=== PATIENT | female | born 1935 | race Hispanic/Latino ===

== ENCOUNTER 2017-06-21 14:46 | Emergency (ER) | payer MEDICARE ==
[2017-06-21 16:51] LABS: BASOPHILS % (AUTO) 0.4 % (0.0-5.0); EOSINOPHILS % (AUTO) 1.3 % (0.0-8.0); HEMATOCRIT 33.5 % (36-48); LYMPHOCYTES % (AUTO) 16.4 % (21.0-51.0); MEAN CORPUSCULAR HEMOGLOBIN 32.7 pg (27.0-33.0); MEAN CORPUSCULAR HGB CONC 34.6 g/dL (32.0-36.0); MEAN CORPUSCULAR VOLUME 94.6 fL (79-99); MONOCYTES % (AUTO) 10.5 % (3.0-13.0); NEUTROPHILS % (AUTO) 71.4 % (40.0-77.0); PLATELET COUNT (AUTO) 290 K/uL (130-400); RED BLOOD CELL COUNT(AUTO) 3.54 MIL/uL (4.00-5.50); RED CELL DISTRIBUTION WIDTH 12.7 % (11.0-15.5); WHITE BLOOD COUNT (AUTO) 9.3 K/uL (4.8-10.8)
[2017-06-21] MEDS ORDERED: PROCHLORPERAZINE EDISYLATE 10 MG/2 ML VIAL ONE (16:51)
[2017-06-21] MEDS ORDERED: DIAZEPAM 2 MG TAB ONE (16:52)
[2017-06-21] MEDS ORDERED: SODIUM CHLORIDE 0.9% 500ML 500 ML IV ONE (16:52)
[2017-06-21 17:05] LABS: POTASSIUM 4.5 mmol/L (3.5-5.1)
== END 2017-06-21 18:36 | disposition home or self-care (01) ==
LOC: EDH 14:46
DX: R51 Headache (principal); E86.0 Dehydration; E78.5 Hyperlipidemia, unspecified; I10 Essential (primary) hypertension; K21.9 Gastro-esophageal reflux disease without esophagitis; Z88.4 Allergy status to anesthetic agent
CPT/HCPCS: 36415; 70450; 71045; 80048; 84484; 85025; 93005; 96361; 96374; 99285; J0780; J7040

== ENCOUNTER 2017-07-21 07:58 | Inpatient (IN) | payer MEDICARE ==
[~2017-07-21] VITALS: Ht 138.8 cm; Wt 65.8 kg
[2017-07-21 08:21] LABS: BASOPHILS % (AUTO) 0.5 % (0.0-5.0); EOSINOPHILS % (AUTO) 0.6 % (0.0-8.0); HEMATOCRIT 32.5 % (36-48); LYMPHOCYTES % (AUTO) 20.7 % (21.0-51.0); MEAN CORPUSCULAR HEMOGLOBIN 32.6 pg (27.0-33.0); MEAN CORPUSCULAR HGB CONC 35.1 g/dL (32.0-36.0); MEAN CORPUSCULAR VOLUME 92.7 fL (79-99); MONOCYTES % (AUTO) 9.6 % (3.0-13.0); NEUTROPHILS % (AUTO) 68.6 % (40.0-77.0); PLATELET COUNT (AUTO) 341 K/uL (130-400); RED CELL DISTRIBUTION WIDTH 12.4 % (11.0-15.5); WHITE BLOOD COUNT (AUTO) 8.3 K/uL (4.8-10.8)
[2017-07-21 08:32] LABS: APPEARANCE,URINE Clear (CLEAR); BILIRUBIN,URINE Negative (NEGATIVE); COLOR,URINE Yellow (YELLOW); GLUCOSE, URINE (UA) Negative (NEGATIVE); KETONES,URINE Negative (NEGATIVE); LEUKOCYTE ESTERASE ,URINE Negative (NEGATIVE); NITRATE,URINE Negative (NEGATIVE); OCCULT BLOOD,URINE Negative (NEGATIVE); PROTEIN,URINE Negative (NEGATIVE); UROBILINOGEN,URINE 0.2 mg/dL (0.2-1.0)
[2017-07-21 08:38] LABS: INR 0.98 (0.85-1.15); PARTIAL THROMBOPLASTIN TIME 27.1 SEC (26.3-35.5); PROTHROMBIN TIME 10.3 SEC (9.6-11.6)
[2017-07-21 08:54] LABS: ALBUMIN 3.5 g/dL (3.5-5.0); BILIRUBIN,TOTAL 0.3 mg/dL (0.2-1.0); CREATINE KINASE MB 1.8 ng/mL (0.5-3.6); CREATININE 0.8 mg/dL (0.5-1.5); POTASSIUM 4.6 mmol/L (3.5-5.1); TOTAL PROTEIN, SERUM 7.1 g/dL (6.0-8.3)
[2017-07-21] MEDS ORDERED: SODIUM CHLORIDE 0.9% 1000ML 1,000 ML IV ONE (09:20)
[2017-07-21] MEDS ORDERED: GUAIFENESIN-DM 200/20 MG 10 ML PO PRN (09:45)
[2017-07-21] MEDS ORDERED: GLUCAGON 1MG KIT 1 MG ML IM PRN (09:45)
[2017-07-21] MEDS ORDERED: MORPHINE SULFATE 2 MG/ML 1ML SYG IV PRN (09:45)
[2017-07-21] MEDS ORDERED: ZOLPIDEM TARTRATE 5 MG TAB PO PRN (09:45)
[2017-07-21] MEDS ORDERED: ONDANSETRON HCL 4 MG/2 ML VIAL IV PRN (09:45)
[2017-07-21] MEDS ORDERED: ACETAMINOPHEN 325 MG TAB PO PRN (09:45)
[2017-07-21] MEDS ORDERED: LACTULOSE 20 GM/30 ML UDCUP PO PRN (09:45)
[2017-07-21] MEDS ORDERED: DEXTROSE 50%-WATER 50 ML DISP.SYRIN IV PRN (09:45)
[2017-07-21] MEDS ORDERED: HYDRALAZINE HCL 20 MG/ML VIAL IV PRN (09:45)
[2017-07-21] MEDS: INSULIN HUMULIN R 100 UNIT/ML 3ML SQ SCH ×3 (11:30→21:25)
[2017-07-21 15:15] VITALS: BP 206/94
[2017-07-21 16:00] VITALS: BP 174/73
[2017-07-21] MEDS ORDERED: METF500T6 PO (16:16)
[2017-07-21] MEDS ORDERED: ATOR10TA69 PO (16:16)
[2017-07-21] MEDS ORDERED: METO-409 PO (16:16)
[2017-07-21] MEDS ORDERED: FERR-82 PO (16:16)
[2017-07-21] MEDS ORDERED: NITR100C9 PO (16:16)
[2017-07-21] MEDS ORDERED: CRAN500C3 PO (16:16)
[2017-07-21] MEDS ORDERED: SITA100T12 PO (16:16)
[2017-07-21] MEDS ORDERED: ASPI-555 PO (16:16)
[2017-07-21] MEDS ORDERED: LOSA25TA21 PO (16:16)
[2017-07-21] MEDS ORDERED: GLIM4TAB3 PO (16:16)
[2017-07-21] MEDS: SODIUM CHLORIDE 0.9% 1000ML 1,000 ML IV SCH (17:49)
[2017-07-21 19:00] VITALS: BP 138/57
[2017-07-21] MEDS: FAMOTIDINE 20MG TAB 20 MG TAB PO SCH (21:25)
[2017-07-21] MEDS ORDERED: METOPROLOL TARTRATE 1 MG/ML 5ML VIAL IV ONE (22:00)
[2017-07-21 23:00] VITALS: BP 123/57
[2017-07-22 03:00] VITALS: BP 142/75
[2017-07-22 04:21] LABS: BASOPHILS % (AUTO) 0.3 % (0.0-5.0); HEMATOCRIT 28.8 % (36-48); MEAN CORPUSCULAR HEMOGLOBIN 32.6 pg (27.0-33.0); MEAN CORPUSCULAR VOLUME 93.1 fL (79-99); MONOCYTES % (AUTO) 9.5 % (3.0-13.0); NEUTROPHILS % (AUTO) 79.2 % (40.0-77.0); PLATELET COUNT (AUTO) 299 K/uL (130-400); WHITE BLOOD COUNT (AUTO) 12.2 K/uL (4.8-10.8)
[2017-07-22 04:33] LABS: BILIRUBIN,TOTAL 0.4 mg/dL (0.2-1.0); CREATININE 0.8 mg/dL (0.5-1.5); POTASSIUM 3.6 mmol/L (3.5-5.1); TOTAL PROTEIN, SERUM 6.2 g/dL (6.0-8.3)
[2017-07-22 04:42] LABS: B-TYPE NATRIURETIC PEPTIDE 202 pg/mL (0-100)
[2017-07-22] MEDS: SODIUM CHLORIDE 0.9% 1000ML 1,000 ML IV SCH ×2 (05:22→17:34)
[2017-07-22] MEDS: INSULIN HUMULIN R 100 UNIT/ML 3ML SQ SCH ×4 (05:49→21:03)
[2017-07-22 09:10] VITALS: BP 141/57
[2017-07-22] MEDS: FAMOTIDINE 20MG TAB 20 MG TAB PO SCH (10:34)
[2017-07-22 12:00] VITALS: BP 122/50
[2017-07-22] MEDS: METFORMIN HCL 500 MG TABLET PO SCH (17:31)
[2017-07-22] MEDS: GLIMEPIRIDE 2 MG TABLET PO SCH (17:31)
[2017-07-22 19:00] VITALS: BP 140/82
[2017-07-22] MEDS ORDERED: ATORVASTATIN CALCIUM 10 MG TABLET PO SCH (21:00)
[2017-07-22] MEDS ORDERED: LOSARTAN 50 MG TABLET PO SCH (21:00)
[2017-07-22] MEDS: METOPROLOL TARTRATE 50 MG TAB PO SCH (21:07)
[2017-07-22 23:00] VITALS: BP 149/60
[2017-07-23] MEDS: SODIUM CHLORIDE 0.9% 1000ML 1,000 ML IV SCH (00:21)
[2017-07-23 03:00] VITALS: BP 171/76
[2017-07-23 04:03] LABS: CREATININE 0.8 mg/dL (0.5-1.5); POTASSIUM 3.4 mmol/L (3.5-5.1); THYROID STIMULATING HORMONE 2.85 uIU/mL (0.36-3.74)
[2017-07-23] MEDS: INSULIN HUMULIN R 100 UNIT/ML 3ML SQ SCH ×2 (06:42→12:49)
[2017-07-23 08:00] VITALS: BP 153/66
[2017-07-23] MEDS ORDERED: FERROUS SULFATE 325 MG TABLET.DR PO SCH (08:00)
[2017-07-23] MEDS ORDERED: LINAGLIPTIN 5 MG TABLET PO SCH (08:00)
[2017-07-23] MEDS ORDERED: ASPIRIN 81 MG EC TAB PO SCH (09:00)
[2017-07-23] MEDS ORDERED: CRANBERRY EXTRACT 500 MG PO SCH (09:00)
[2017-07-23] MEDS ORDERED: NITROFURANTOIN MONOHYD/M-CRYST 100 MG CAPSULE PO SCH (09:00)
[2017-07-23] MEDS: FAMOTIDINE 20MG TAB 20 MG TAB PO SCH (09:31)
[2017-07-23] MEDS: METOPROLOL TARTRATE 50 MG TAB PO SCH (09:32)
[2017-07-23] MEDS: GLIMEPIRIDE 2 MG TABLET PO SCH (09:32)
[2017-07-23] MEDS: METFORMIN HCL 500 MG TABLET PO SCH (09:32)
[2017-07-23 12:00] VITALS: BP 157/76
== END 2017-07-23 14:25 | disposition home or self-care (01) | DRG 640 ==
LOC: EDH 07:58 → EDHIP 09:43 → 3CH 14:50
PROVIDERS: ADMIT Family Medicine; ATTEND Family Medicine
DX: E87.1 Hypo-osmolality and hyponatremia (principal); G93.41 Metabolic encephalopathy; D64.9 Anemia, unspecified; E11.9 Type 2 diabetes mellitus without complications; E86.0 Dehydration; E78.5 Hyperlipidemia, unspecified; R00.0 Tachycardia, unspecified; K21.9 Gastro-esophageal reflux disease without esophagitis; R60.9 Edema, unspecified; I10 Essential (primary) hypertension; R41.82 Altered mental status, unspecified; Z98.82 Breast implant status; Z98.891 History of uterine scar from previous surgery; Z28.21 Immunization not carried out because of patient refusal; Z98.49 Cataract extraction status, unspecified eye; Z90.10 Acquired absence of unspecified breast and nipple; Z88.6 Allergy status to analgesic agent; Z79.899 Other long term (current) drug therapy
CPT/HCPCS: 36415; 70450; 80048; 80053; 81003; 82550; 82553; 82948; 83880; 84443; 84484; 85025; 85610; 85730; 93005; J0360; J1815; J3490; J7030

== ENCOUNTER 2019-07-11 12:03 | Emergency (ER) | payer MEDICARE ==
[~2019-07-11 12:03] MED LIST: ACET-2247 PO; ASPI-555 PO; ATOR10TA69 PO; CALC600T12 PO; DONE5TAB33 PO; FOLI0.8C PO; GLIM1TAB18 PO; LOSA25TA41 PO; METF-444 PO; METO-391 PO; MULT-1192 PO; NAPR220C15 PO; RANI150T7 PO; SITA100T12 PO
[2019-07-11] MEDS ORDERED: ACETAMINOPHEN EXTRA STRENGTH 500 MG TABLET ONE (12:26)
== END 2019-07-11 12:58 | disposition home or self-care (01) ==
LOC: EDH 12:03
DX: S61.213A Laceration without foreign body of left middle finger without damage to nail, initial encounter (principal); I10 Essential (primary) hypertension; E11.9 Type 2 diabetes mellitus without complications; K21.9 Gastro-esophageal reflux disease without esophagitis; E78.5 Hyperlipidemia, unspecified; F03.90 Unspecified dementia, unspecified severity, without behavioral disturbance, psychotic disturbance, mood disturbance, and anxiety; Z90.11 Acquired absence of right breast and nipple; Z98.890 Other specified postprocedural states; Z88.8 Allergy status to other drugs, medicaments and biological substances; W22.8XXA Striking against or struck by other objects, initial encounter; Y93.89 Activity, other specified; Y92.89 Other specified places as the place of occurrence of the external cause; Y99.8 Other external cause status
CPT/HCPCS: 29131; 73130

== ENCOUNTER 2020-02-07 10:05 | Inpatient (IN) | payer MEDICARE ==
[~2020-02-07] VITALS: Ht 160 cm; Wt 57.6 kg
[~2020-02-07 10:05] MED LIST changes: -ASPI-555 PO; +ASPI-556 PO; -CALC600T12 PO; +CALC600T15 PO
[2020-02-07 11:02] LABS: BASOPHILS % (AUTO) 0.5 % (0.0-5.0); EOSINOPHILS % (AUTO) 0.3 % (0.0-8.0); HEMATOCRIT 35.2 % (36-48); LYMPHOCYTES % (AUTO) 11.6 % (21.0-51.0); MEAN CORPUSCULAR HEMOGLOBIN 31.3 pg (27.0-33.0); MEAN CORPUSCULAR HGB CONC 33.2 g/dL (32.0-36.0); MEAN CORPUSCULAR VOLUME 94.1 fL (79-99); MONOCYTES % (AUTO) 8.6 % (3.0-13.0); NEUTROPHILS % (AUTO) 78.2 % (40.0-77.0); PLATELET COUNT (AUTO) 339 K/uL (130-400); RED BLOOD CELL COUNT(AUTO) 3.74 MIL/uL (4.00-5.50); WHITE BLOOD COUNT (AUTO) 10.6 K/uL (4.8-10.8)
[2020-02-07 11:04] LABS: BILIRUBIN,URINE SMALL (NEGATIVE); COLOR,URINE YELLOW (YELLOW); GLUCOSE, URINE (UA) 100 mg/dL (NEGATIVE); KETONES,URINE 15 mg/dL (NEGATIVE); LEUKOCYTE ESTERASE ,URINE MODERATE (NEGATIVE); NITRATE,URINE NEGATIVE (NEGATIVE); OCCULT BLOOD,URINE LARGE (NEGATIVE); PROTEIN,URINE 100 mg/dL (NEGATIVE); UROBILINOGEN,URINE 0.2 mg/dL (0.2-1.0)
[2020-02-07 11:16] LABS: CREATININE 1.3 mg/dL (0.5-1.5); POTASSIUM 3.9 mmol/L (3.5-5.1)
[2020-02-07 11:18] LABS: APPEARANCE,URINE CLOUDY (CLEAR)
[2020-02-07 11:22] LABS: ALBUMIN 3.1 g/dL (3.5-5.0); BILIRUBIN,TOTAL 0.2 mg/dL (0.2-1.0); TOTAL PROTEIN, SERUM 6.4 g/dL (6.0-8.3)
[2020-02-07] MEDS ORDERED: INSULIN HUMULIN R 100 UNIT/ML 3ML ONE (11:43)
[2020-02-07 11:46] LABS: BACTERIA,URINE Moderate /HPF (None Seen); WBC,URINE >100 /HPF (0-1)
[2020-02-07] MEDS ORDERED: SODIUM CHLORIDE 0.9% 100 ML IV ONE ×2 (13:01→17:02)
[2020-02-07] MEDS ORDERED: MEROPENEM 1 GM VIAL ONE (13:01)
[2020-02-07] MEDS: SODIUM CHLORIDE 0.9% 1000ML 1,000 ML IV SCH (15:41)
[2020-02-07] MEDS ORDERED: ACETAMINOPHEN 325 MG TAB PO PRN (15:45)
[2020-02-07] MEDS ORDERED: DEXTROSE 50%-WATER 50 ML DISP.SYRIN IV PRN (15:45)
[2020-02-07] MEDS ORDERED: GLUCAGON 1MG KIT 1 MG ML IM PRN (15:45)
[2020-02-07] MEDS ORDERED: ONDANSETRON HCL 4 MG/2 ML VIAL IV PRN (15:45)
[2020-02-07] MEDS ORDERED: LACTULOSE 20 GM/30 ML UDCUP PO PRN (15:45)
[2020-02-07] MEDS: CEFTRIAXONE SODIUM 1 GM IV SCH (15:45)
[2020-02-07] MEDS: INSULIN HUMULIN R 100 UNIT/ML 3ML SQ SCH ×2 (16:30→21:00)
[2020-02-07] MEDS: METFORMIN HCL 500 MG TABLET PO SCH (17:00)
[2020-02-07] MEDS ORDERED: CEFTRIAXONE SODIUM 1 GM ONE (17:01)
[2020-02-07 18:25] LABS: PHOSPHORUS 1.9 mg/dL (2.5-4.9)
[2020-02-07] MEDS ORDERED: PREMC VG (20:46)
[2020-02-07] MEDS ORDERED: OMEP-420 PO (20:46)
[2020-02-07 20:50] VITALS: BP 123/78
[2020-02-07] MEDS ORDERED: POTASSIUM CHLORIDE 20 MEQ ERTAB PO PRN (21:00)
[2020-02-07] MEDS ORDERED: LIDOCAINE HCL-MPF 1% 2ML VIAL IV PRN (21:00)
[2020-02-07] MEDS ORDERED: FERR240T10 PO (21:27)
[2020-02-07] MEDS: ATORVASTATIN CALCIUM 10 MG TABLET PO SCH (21:37)
[2020-02-07] MEDS: DONEPEZIL HCL 5 MG TAB PO SCH (21:37)
[2020-02-07] MEDS: CALCIUM CARBONATE 500 MG TABLET PO SCH (21:37)
[2020-02-07] MEDS: LOSARTAN 50 MG TABLET PO SCH (21:37)
[2020-02-07] MEDS: MAGNESIUM 2GM PREMIX 50ML 50 ML IV PRN (21:38)
[2020-02-08] VITALS: BP 176/76
[2020-02-08] MEDS: SODIUM CHLORIDE 0.9% 1000ML 1,000 ML IV SCH ×3 (01:37→22:18)
[2020-02-08 03:48] VITALS: BP 169/66
[2020-02-08] MEDS: MAGNESIUM 2GM PREMIX 50ML 50 ML IV PRN (05:27)
[2020-02-08] MEDS: INSULIN HUMULIN R 100 UNIT/ML 3ML SQ SCH ×4 (06:39→21:00)
[2020-02-08 07:16] LABS: HEMATOCRIT 27.7 % (36-48); MEAN CORPUSCULAR HGB CONC 33.9 g/dL (32.0-36.0); MEAN CORPUSCULAR VOLUME 94.2 fL (79-99); RED BLOOD CELL COUNT(AUTO) 2.94 MIL/uL (4.00-5.50); RED CELL DISTRIBUTION WIDTH 14.6 % (11.0-15.5); WHITE BLOOD COUNT (AUTO) 10.3 K/uL (4.8-10.8)
[2020-02-08 08:01] LABS: ALBUMIN 1.8 g/dL (3.5-5.0); BILIRUBIN,TOTAL 0.2 mg/dL (0.2-1.0); CREATININE 0.5 mg/dL (0.5-1.5); TOTAL PROTEIN, SERUM 4.1 g/dL (6.0-8.3)
[2020-02-08 08:14] LABS: POTASSIUM 2.7 mmol/L (3.5-5.1)
[2020-02-08 08:33] VITALS: BP 141/73
[2020-02-08] MEDS: **HM**(Folic Acid 0.8 MG PO SCH (09:00)
[2020-02-08] MEDS ORDERED: LIDOCAINE HCL-MPF 1% 2ML VIAL ONE ×2 (09:09→12:55)
[2020-02-08] MEDS: POTASSIUM CHLORIDE 20MEQ/100ML 100 ML IV PRN ×2 (09:15→12:59)
[2020-02-08] MEDS: ENOXAPARIN SODIUM 40 MG/0.4 ML SYRINGE SQ SCH (09:17)
[2020-02-08] MEDS: LINAGLIPTIN 5 MG TABLET PO SCH (09:18)
[2020-02-08] MEDS: MULTIVITAMIN TABLET PO SCH (09:19)
[2020-02-08] MEDS: ASPIRIN 81 MG EC TAB PO SCH (09:19)
[2020-02-08] MEDS: METOPROLOL SUCCINATE 50 MG TAB.SR.24H PO SCH (09:19)
[2020-02-08] MEDS: GLIMEPIRIDE 2 MG TABLET PO SCH (09:20)
[2020-02-08] MEDS: POTASSIUM CHLORIDE 10% ELIXIR 20 MEQ/15 ML UDCUP PO PRN ×2 (09:21→12:11)
[2020-02-08] MEDS: CALCIUM CARBONATE 500 MG TABLET PO SCH ×2 (09:21→19:53)
[2020-02-08] MEDS: METFORMIN HCL 500 MG TABLET PO SCH ×2 (09:27→17:32)
[2020-02-08 11:29] VITALS: BP 142/72
[2020-02-08 16:00] VITALS: BP 178/87
--- NOTE | 2020-02-08 16:37 | NUR ---
DCP IA done by Espinoza Landeros RN. As per Espinoza pt is assist with ADL's, lives at home with son. Pt has a walker, shower chair, uses [facility] for meds. Denies any other equipments/services. Feels safe to go back home, son able to assist with transportation and needs as necessary. DC plan to home once stable. CM to cont to follow up. Addendum: 02/08/20 at 1640 by ELAN BARRERA LVN CM Amended: Links added.
[2020-02-08] MEDS: CEFTRIAXONE SODIUM 1 GM IV SCH (17:32)
[2020-02-08 19:47] LABS: MAGNESIUM 1.9 mg/dL (1.80-2.40); POTASSIUM 4.6 mmol/L (3.5-5.1)
[2020-02-08] MEDS: ATORVASTATIN CALCIUM 10 MG TABLET PO SCH (19:53)
[2020-02-08] MEDS: LOSARTAN 50 MG TABLET PO SCH (19:53)
[2020-02-08] MEDS: DONEPEZIL HCL 5 MG TAB PO SCH (19:53)
[2020-02-08 20:16] VITALS: BP 172/75
[2020-02-09 00:16] VITALS: BP 171/77
[2020-02-09 04:16] VITALS: BP 160/76
[2020-02-09 04:25] LABS: HEMATOCRIT 33.7 % (36-48); MEAN CORPUSCULAR HEMOGLOBIN 31.5 pg (27.0-33.0); MEAN CORPUSCULAR HGB CONC 33.5 g/dL (32.0-36.0); MEAN CORPUSCULAR VOLUME 93.9 fL (79-99); RED BLOOD CELL COUNT(AUTO) 3.59 MIL/uL (4.00-5.50); RED CELL DISTRIBUTION WIDTH 14.5 % (11.0-15.5); WHITE BLOOD COUNT (AUTO) 10.1 K/uL (4.8-10.8)
[2020-02-09 04:49] LABS: ALBUMIN 2.9 g/dL (3.5-5.0); BILIRUBIN,TOTAL 0.4 mg/dL (0.2-1.0); CREATININE 0.8 mg/dL (0.5-1.5); TOTAL PROTEIN, SERUM 6.3 g/dL (6.0-8.3)
[2020-02-09] MEDS: INSULIN HUMULIN R 100 UNIT/ML 3ML SQ SCH ×4 (05:17→20:28)
[2020-02-09] MEDS: MAGNESIUM 2GM PREMIX 50ML 50 ML IV PRN (06:29)
[2020-02-09] MEDS ORDERED: HYDRALAZINE HCL 20 MG/ML VIAL IV PRN (06:30)
[2020-02-09 08:02] VITALS: BP 144/87
[2020-02-09] MEDS: **HM**(Folic Acid 0.8 MG PO SCH (09:00)
[2020-02-09] MEDS: GLIMEPIRIDE 2 MG TABLET PO SCH (10:25)
[2020-02-09] MEDS: LINAGLIPTIN 5 MG TABLET PO SCH (10:26)
[2020-02-09] MEDS: ASPIRIN 81 MG EC TAB PO SCH (10:26)
[2020-02-09] MEDS: MULTIVITAMIN TABLET PO SCH (10:26)
[2020-02-09] MEDS: METFORMIN HCL 500 MG TABLET PO SCH ×2 (10:26→16:23)
[2020-02-09] MEDS: CALCIUM CARBONATE 500 MG TABLET PO SCH ×2 (10:26→19:32)
[2020-02-09] MEDS: METOPROLOL SUCCINATE 50 MG TAB.SR.24H PO SCH (10:26)
[2020-02-09] MEDS: ENOXAPARIN SODIUM 40 MG/0.4 ML SYRINGE SQ SCH (10:27)
[2020-02-09 11:39] VITALS: BP 144/73
[2020-02-09] MEDS: CEFTRIAXONE SODIUM 1 GM IV SCH (15:15)
[2020-02-09 17:53] VITALS: BP 156/76
[2020-02-09] MEDS: ATORVASTATIN CALCIUM 10 MG TABLET PO SCH (19:31)
[2020-02-09] MEDS: DONEPEZIL HCL 5 MG TAB PO SCH (19:31)
[2020-02-09] MEDS: LOSARTAN 50 MG TABLET PO SCH (19:32)
[2020-02-09 20:00] VITALS: BP 140/66
[2020-02-10] VITALS (8 sets, daily range): BP systolic 104–177; BP diastolic 59–82
[2020-02-10 03:31] LABS: HEMATOCRIT 30.7 % (36-48); MEAN CORPUSCULAR HEMOGLOBIN 31.5 pg (27.0-33.0); MEAN CORPUSCULAR HGB CONC 34.2 g/dL (32.0-36.0); MEAN CORPUSCULAR VOLUME 92.2 fL (79-99); RED BLOOD CELL COUNT(AUTO) 3.33 MIL/uL (4.00-5.50); RED CELL DISTRIBUTION WIDTH 14.6 % (11.0-15.5); WHITE BLOOD COUNT (AUTO) 7.8 K/uL (4.8-10.8)
[2020-02-10 03:53] LABS: ALBUMIN 2.8 g/dL (3.5-5.0); BILIRUBIN,TOTAL 0.5 mg/dL (0.2-1.0); CREATININE 0.7 mg/dL (0.5-1.5); POTASSIUM 3.8 mmol/L (3.5-5.1); TOTAL PROTEIN, SERUM 5.9 g/dL (6.0-8.3)
[2020-02-10] MEDS: INSULIN HUMULIN R 100 UNIT/ML 3ML SQ SCH ×4 (05:21→21:00)
[2020-02-10] MEDS: **HM**(Folic Acid 0.8 MG PO SCH (09:00)
[2020-02-10] MEDS: ASPIRIN 81 MG EC TAB PO SCH (09:44)
[2020-02-10] MEDS: METFORMIN HCL 500 MG TABLET PO SCH ×2 (09:44→17:00)
[2020-02-10] MEDS: LINAGLIPTIN 5 MG TABLET PO SCH (09:44)
[2020-02-10] MEDS ORDERED: FLUCONAZOLE 100 MG TAB PO SCH (09:54)
[2020-02-10] MEDS: GLIMEPIRIDE 2 MG TABLET PO SCH (09:55)
[2020-02-10] MEDS: MULTIVITAMIN TABLET PO SCH (09:55)
[2020-02-10] MEDS: CALCIUM CARBONATE 500 MG TABLET PO SCH ×2 (09:55→21:29)
[2020-02-10] MEDS: NYSTATIN 15 GM POWDER TP SCH ×3 (09:57→21:00)
[2020-02-10] MEDS: ENOXAPARIN SODIUM 40 MG/0.4 ML SYRINGE SQ SCH (09:58)
[2020-02-10] MEDS: METOPROLOL SUCCINATE 50 MG TAB.SR.24H PO SCH (12:51)
[2020-02-10] MEDS: LOSARTAN 50 MG TABLET PO SCH (12:51)
[2020-02-10] MEDS: CEFTRIAXONE SODIUM 1 GM IV SCH (15:55)
[2020-02-10] MEDS: DONEPEZIL HCL 5 MG TAB PO SCH (21:29)
[2020-02-10] MEDS: ATORVASTATIN CALCIUM 10 MG TABLET PO SCH (21:29)
[2020-02-11 03:42] VITALS: BP 143/72
[2020-02-11 03:57] LABS: HEMATOCRIT 29.8 % (36-48); MEAN CORPUSCULAR HGB CONC 34.6 g/dL (32.0-36.0); MEAN CORPUSCULAR VOLUME 92.5 fL (79-99); RED BLOOD CELL COUNT(AUTO) 3.22 MIL/uL (4.00-5.50); RED CELL DISTRIBUTION WIDTH 14.3 % (11.0-15.5); WHITE BLOOD COUNT (AUTO) 8.3 K/uL (4.8-10.8)
[2020-02-11 04:13] LABS: ALBUMIN 2.8 g/dL (3.5-5.0); BILIRUBIN,TOTAL 0.3 mg/dL (0.2-1.0); CREATININE 0.9 mg/dL (0.5-1.5)
[2020-02-11] MEDS: INSULIN HUMULIN R 100 UNIT/ML 3ML SQ SCH ×2 (05:16→11:30)
[2020-02-11 07:30] VITALS: BP 160/80
[2020-02-11] MEDS: **HM**(Folic Acid 0.8 MG PO SCH (09:00)
[2020-02-11] MEDS ORDERED: CIPR500S4 PO (09:32)
[2020-02-11] MEDS: MULTIVITAMIN TABLET PO SCH (09:46)
[2020-02-11] MEDS: ASPIRIN 81 MG EC TAB PO SCH (09:46)
[2020-02-11] MEDS: METOPROLOL SUCCINATE 50 MG TAB.SR.24H PO SCH (09:46)
[2020-02-11] MEDS: LOSARTAN 50 MG TABLET PO SCH (09:46)
[2020-02-11] MEDS: CALCIUM CARBONATE 500 MG TABLET PO SCH (09:46)
[2020-02-11] MEDS: METFORMIN HCL 500 MG TABLET PO SCH (09:46)
[2020-02-11] MEDS: GLIMEPIRIDE 2 MG TABLET PO SCH (09:47)
[2020-02-11] MEDS: LINAGLIPTIN 5 MG TABLET PO SCH (09:48)
[2020-02-11] MEDS: ENOXAPARIN SODIUM 40 MG/0.4 ML SYRINGE SQ SCH (09:49)
[2020-02-11] MEDS: NYSTATIN 15 GM POWDER TP SCH (09:50)
[2020-02-11 11:00] VITALS: BP 134/64
--- NOTE | 2020-02-11 12:45 | NUR ---
D/C INSTRUCTIONS GIVEN TO PATIENT AND I HAVE ALSO CALLED HER SON YVETTE AND GAVE HIM INSTRUCTIONS AND INFORMED HIM OF NEED TO FILL PERSCRIPTION FOR CIPRO AND CALL [facility] FOR F/U WITH PRIMARY MD; PT IS SUPPOSED TO HAVE A TELEPHONE FOLLOW UP AND THEY WILL CALL SON AND GIVE HIM ALL THE INSTRUCTIONS TO HOW; IV ACCESS HAS BEEN REMOVED; NO CLOTHING IN PT'S ROOM--I CALLED SECURITY AND THEY STATED IT WOULD BE AWHILE BEFORE THEY COULD CHECK IF SHE HAS CLOTHES WITH THEM--I CALLED SON AND HE IS GOING TO BRING HER CLOTHES.
== END 2020-02-11 13:20 | disposition home or self-care (01) | DRG 690 ==
LOC: EDH 10:05 → EDHIP 15:41 → 3AH 20:08
PROVIDERS: ADMIT Hospitalist; ATTEND Hospitalist
DX: N30.91 Cystitis, unspecified with hematuria (principal); I10 Essential (primary) hypertension; E11.9 Type 2 diabetes mellitus without complications; E78.5 Hyperlipidemia, unspecified; K76.9 Liver disease, unspecified; D89.9 Disorder involving the immune mechanism, unspecified; K57.30 Diverticulosis of large intestine without perforation or abscess without bleeding; I25.10 Atherosclerotic heart disease of native coronary artery without angina pectoris; Z79.82 Long term (current) use of aspirin; Z79.84 Long term (current) use of oral hypoglycemic drugs; Z79.899 Other long term (current) drug therapy; Z90.11 Acquired absence of right breast and nipple; F03.90 Unspecified dementia, unspecified severity, without behavioral disturbance, psychotic disturbance, mood disturbance, and anxiety
CPT/HCPCS: 36415; 74018; 74176; 80053; 81001; 82948; 83605; 83735; 84100; 84132; 85025; 85027; 87040; 87077; 87088; 87186; G0378; J0360; J0696; J1650; J1815; J2185; J3475; J3480; J3490